=== PATIENT | female | born 1955 ===

== ENCOUNTER 2022-08-07 10:01 | Outpatient (CLI) | payer SELFPAY ==
[2022-08-07 12:27] LABS: Albumin* 4.1 g/dL (3.3-5.0); Chloride* 107 mmol/L (96-114); Potassium* 4.7 mmol/L (3.6-5.1); Sodium* 141 mmol/L (135-149)
[2022-08-07 12:29] LABS: Carbon Dioxide* 27 mmol/L (20-32); Cholesterol* 225 mg/dL (90-199); Estimated Glomerular Filt Rate 63 ml/min
[2022-08-07 12:30] LABS: Alanine Aminotransferase* 21 U/L (4-35); Alkaline Phosphatase* 83 U/L (40-150); Aspartate Amino Transferase* 26 U/L (12-35); Bilirubin Direct* 0.1 mg/dL (0.0-0.5); Bilirubin Total* 0.5 mg/dL (0.1-1.5); Blood Urea Nitrogen* 22 mg/dL (7-30); Glucose* 92 mg/dL (60-115); Total Protein* 7.1 g/dL (6.0-8.3); Triglycerides* 112 mg/dL (40-149)
[2022-08-07 12:31] LABS: HDL Cholesterol* 52 mg/dL (>=50); LDL Cholesterol Calculated 151 mg/dL (<100)
== END 2022-08-07 10:02 | disposition home or self-care (01) ==
LOC: LKVREF 10:04
PROVIDERS: PCP Emergency Medicine; Visit Provider Emergency Medicine
DX: E78.5 Hyperlipidemia, unspecified (principal); Z71.3 Dietary counseling and surveillance
CPT/HCPCS: 80048; 80061; 80076

== ENCOUNTER 2023-04-28 10:33 | Outpatient (CLI) | payer OTHER, SELFPAY | END 2023-04-28 10:34 | disposition home or self-care (01) | LOC: LKVREF 10:34 | PROVIDERS: PCP Emergency Medicine; Visit Provider Emergency Medicine | DX: E78.5 Hyperlipidemia, unspecified (principal); E66.3 Overweight; Z68.35 Body mass index [BMI] 35.0-35.9, adult | CPT/HCPCS: 84443 ==

== ENCOUNTER 2024-03-16 08:17 | Outpatient (CLI) | payer OTHER, SELFPAY | END 2024-03-16 08:18 | disposition home or self-care (01) | PROVIDERS: PCP Emergency Medicine; Visit Provider Emergency Medicine | DX: E78.5 Hyperlipidemia, unspecified (principal); R04.0 Epistaxis; Z71.3 Dietary counseling and surveillance | CPT/HCPCS: 80053; 84443 ==

== ENCOUNTER 2024-03-23 12:48 | Outpatient (CLI) | payer OTHER, SELFPAY ==
--- NOTE | 2024-03-23 13:00 | CRLHL7_ITS ---
For Patients: As a result of the Century Cures Act, medical imaging exams and procedure reports are released immediately into your electronic medical record. You may view this report before your referring provider. If you have questions, please contact your health care provider. Indication: ? palpable mass getting smaller right side, patient palpated Technique: Grayscale and color Doppler ultrasound of the soft tissues in the right lower neck performed. Comparison: None Findings: Targeted sonogram to the right lower neck soft tissues demonstrates a small focus of hyperechoic tissue measuring 5 x 2 x 6 millimeters without internal vascularity. No fluid collection. Similar findings appear to be present on the left. Impression: Benign exam without suspicious findings. Incidental fat lobule suspected within the area of concern. Dictated by Hany Mays MD @ 03/24/2024 6:36:00 AM (Electronically Signed)
== END 2024-03-23 12:49 | disposition home or self-care (01) ==
LOC: US 12:49
PROVIDERS: PCP Emergency Medicine; Visit Provider Emergency Medicine
DX: R22.1 Localized swelling, mass and lump, neck (principal)
CPT/HCPCS: 76536

== ENCOUNTER 2024-05-23 13:14 | Outpatient (CLI) | payer OTHER, SELFPAY ==
--- NOTE | 2024-05-23 13:20 | CRLHL7_ITS ---
For Patients: As a result of the Century Cures Act, medical imaging exams and procedure reports are released immediately into your electronic medical record. You may view this report before your referring provider. If you have questions, please contact your health care provider. BILATERAL SCREENING MAMMOGRAM WITH COMPUTER-AIDED DETECTION AND TOMOSYNTHESIS TECHNIQUE: CC and MLO views were obtained. These mammographic images have been obtained using full-field digital technique. These mammographic images were interpreted with the benefit of computer-aided detection. Breast Tomosynthesis was used in this interpretation. COMPARISON FILM: No comparison available. FINDINGS: There are scattered areas of fibroglandular density IMPRESSION: There is no radiographic evidence for malignancy. ASSESSMENT: BI-RADS Category 1: Negative RECOMMENDATION: Routine screening mammogram in 1 year. A lay language report of this examination will be provided to the patient. Hany Mays M.D. Diagnostic Radiologist [email or web address] LATOYA/Dictated by: Hany Mays MD @ 06/07/2024 10:18:00 AM (Electronically Signed)
== END 2024-05-23 13:15 | disposition home or self-care (01) ==
PROVIDERS: PCP Emergency Medicine; Visit Provider Emergency Medicine
DX: Z12.31 Encounter for screening mammogram for malignant neoplasm of breast (principal)
CPT/HCPCS: 77063; 77067

== ENCOUNTER 2024-12-27 11:51 | Outpatient (CLI) | payer MEDICARE, OTHER, SELFPAY | END 2024-12-27 11:52 | disposition home or self-care (01) | PROVIDERS: PCP Emergency Medicine; Visit Provider Emergency Medicine | DX: L65.9 Nonscarring hair loss, unspecified (principal) | CPT/HCPCS: 82728; 84443 ==

== ENCOUNTER 2025-06-20 13:24 | Outpatient (CLI) | payer MEDICARE, OTHER, SELFPAY ==
--- NOTE | 2025-06-20 13:30 | XR_ITS ---
Patient: LEN PARADA Facility:?[facility] Patient ID:?[id number] Site Patient ID:?[id number]. Site :?[id number] Study:?DEXA-Bone Density L SPINE BILAT HIPS-06/20/2025 3:11:05 PM Ordering Physician:Tristan Wagner Final Report: DXA BONE MINERAL DENSITY STUDY Reason for exam: Bone density screening. Current height (in): 64. Weight (lb): 197. Menopause age: 51. Ethnicity: White. 1. Have you had a previous hip or vertebral fracture? No. 2. Have you had any fractures during your adult life which did not result from significant trauma (e.g., auto accident)? No. 3. Did either of your parents have a hip fracture? No. 4. Do you smoke? No. 5. Have you ever taken Glucocorticoids? No. 6. Do you have rheumatoid arthritis? No. 7. Do you have secondary osteoporosis? No. 8. Do you drink 3 or more alcoholic drinks per day? No. 9. Are you being treated for osteoporosis? No. 10. Have you ever taken any of the following medications: Actonel, Evista, Fosamax, Miacalcin, Reclast, Boniva, Forteo, HRT (i.e. estrogen/hormone therapy), Protelos, Prolia, Vitamin D, Calcium, other ? please specify. ANSWER: Yes, calcium. 11. Do you have any of the following medical conditions: Anorexia or bulimia, asthma or emphysema, end stage renal disease, hyperparathyroidism, any seizure disorders, cancer, inflammatory bowel diseases, hysterectomy, other ? please specify. ANSWER: No. 12. What was your maximum height (inches)? 64. 13. Do you perform weight bearing exercise regularly? No. 14. Do you regularly consume dairy products? Yes. 15. Do you drink caffeinated beverages? 16. At what age did your period start? 16. 17. Are you premenopausal? No. 18. How many full-term pregnancies have you had? 5. 19. Have you ever missed your period for more than 6 months in a row (not including or menopause)? No. TECHNIQUE: Bone mineral density study was performed using the [employer]. FINDINGS: The results of the study expressed as bone mineral density (BMD) are as follows: Lumbar spine L1 to L4: BMD: 0.969 g/cm2. T-score: -0.7. Z-score: 1.3. Neck Left: BMD: 0.783 g/cm2. T-score: -0.6. Z-score: 1.1. Right: BMD: 0.813 g/cm2. T-score: -0.3. Z-score: 1.4. Total Left: BMD: 0.940 g/cm2. T-score: 0.0. Z-score: 1.4. Right: BMD: 1.005 g/cm2. T-score: 0.5. Z-score: 2.0. IMPRESSION: Normal bone density. *Comparison exams done prior to 02/2020 were performed on different unit, [employer]. Hany Mays M.D. Diagnostic Radiologist [email or web address] UDAY/nazario D& Transcribed: 12:54 p.mManuel lange/Dictated by: Hany Mays MD @ 06/25/2025 9:47:00 AM Signed by:?Hany Mays MD @06/25/2025 12:56:49 PM (Electronic Signature)
--- NOTE | 2025-06-20 14:00 | CRLHL7_ITS ---
For Patients: As a result of the Century Cures Act, medical imaging exams and procedure reports are released immediately into your electronic medical record. You may view this report before your referring provider. If you have questions, please contact your health care provider. INDICATION: BILATERAL SCREENING MAMMOGRAM, ASYMPTOMATIC 69 Y/O FEMALE COMPARISON: 05/23/2024, 11/04/2018, 09/23/2015 TECHNIQUE: Digital mammogram in CC and MLO projections including computer-aided detection (CAD) and tomosynthesis. BREAST COMPOSITION: There are scattered areas of fibroglandular density. FINDINGS: No suspicious findings. ASSESSMENT: BI-RADS 1 Negative RECOMMENDATION: Annual screening mammogram. A lay language report of this examination will be provided to the patient. Dictated by: Aviva Ford MD @ 06/23/2025 07:27:38 (Electronically Signed)
== END 2025-06-20 13:25 | disposition home or self-care (01) ==
LOC: RAD 13:26
PROVIDERS: Visit Provider Emergency Medicine
DX: Z12.31 Encounter for screening mammogram for malignant neoplasm of breast (principal); Z78.0 Asymptomatic menopausal state; Z13.820 Encounter for screening for osteoporosis
CPT/HCPCS: 77063; 77067; 77080